=== PATIENT | female | born 1975 | race African-American/Black ===

== ENCOUNTER 2017-04-02 07:49 | Inpatient (IN) | payer OTHER ==
[~2017-04-02] VITALS: Ht 160 cm; Wt 83.5 kg
[2017-04-02] VITALS (12 sets, daily range): BP systolic 116–140; BP diastolic 71–98
[~2017-04-02 07:49] MED LIST: Bacitracin 50000 Units Vial ONE; Bupivacaine w/Epi 0.5% 30ml Vial INJ ONE; Dexamethasone 20mg/5ml IVP ONE; Heparin 5000 units/ml inj ONE; Lidocaine 1% 10mg/ml/Epi 0.005mg/ml 30ml vial INJ ONE; Surgicel 4in x 8in TOPIC ONE; Thrombin 5000 units TOPIC ONE; Vancomycin 1gm inj IVPB ONE; ceFAZolin 1gm in D5W 55ml IVPB ONE; ceFAZolin 1gm/50ml Premix 50 ML IV ONE
[2017-04-02] MEDS ORDERED: CYCLOBENZAPRINE10 MG ORAL (08:55)
[2017-04-02] MEDS ORDERED: MORPHINE IR15 MG ORAL (08:55)
[2017-04-02] MEDS ORDERED: OXYCODONE IR15 MG ORAL (08:55)
[2017-04-02] MEDS ORDERED: HYDROmorphone 1mg/ml Carpuject SUBQ PRN (09:00)
[2017-04-02] MEDS ORDERED: Chloraseptic Spray 20mL Bottle ORAL PRN (09:00)
[2017-04-02] MEDS ORDERED: Dronabinol 2.5mg Cap ORAL SCH (09:00)
[2017-04-02] MEDS ORDERED: LR 1000ml 1,000 ML IVLG SCH (12:34)
--- NOTE | 2017-04-02 12:39 | Anethesia Preoperative Eval ---
Anesthesia Pre-op PMH/ROS General Date of Evaluation: Apr 02, 2017 Time of Evaluation: 13:36 Anesthesiologist: Dharmesh ASA Score: ASA 2 Mallampati Score Class I : Soft palate, uvula, fauces, pillars visible Class II: Soft palate, uvula, fauces visible Class III: Soft palate, base of uvula visible Class IV: Only hard plate visible Mallampati Classification: Class II Surgeon: Delilah Diagnosis: Neck Pain Surgical Procedure: ACDF C5-6, C6-7 Anesthesia History: none Family History: no anesthesia problems Allergies: Uncoded Allergies: SYNTHETIC HORMONES (Adverse Reaction, Unknown, wbc goes down , 04/02/17) Medications: see eMAR Past Medical History Cardiovascular: Reports: HTN Hematology/Immune: Reports: anemia Other: obesity - BMI 33 PSxH Narrative: Myomectomy, Cholecystectomy Anesthesia Pre-op Phys. Exam Physician Exam Last Vital Signs Date Time Temp Pulse Resp B/P (MAP) Pulse Ox O2 Delivery O2 Flow Rate FiO2 04/02/17 08:47 97.2 85 18 131/81 100 Room Air Constitutional: NAD Neurologic: CN 2-12 intact Cardiovascular: RRR Respiratory: CTA Gastrointestinal: S/NT/ND Airway Exam Mallampati Score: Class II MO: limited ROM: limited Teeth: intact Anesthesia Pre-op A/P Labs Urine Test Test 04/02/17 08:15 Urine HCG, Qualitative Negative Risk Assessment & Plan Assessment: ASA 2 Plan: GA, BIS, Glidescope Status Change Before Surgery: No Pre-Antibiotics Dru Grams Ancef IV Given Within 1 Hr of Incision: Yes Time Given: 14:56 Todd Barroso MD Apr 02, 2017 12:39
[2017-04-02] MEDS ORDERED: Hydromorphone 0.5mg/0.5ml inj IVP PRN (12:45)
[2017-04-02] MEDS ORDERED: oxyCODONE HCL/Acetaminophen 5/325mg ORAL PRN (12:45)
[2017-04-02] MEDS ORDERED: Atropine Inj 1mg/10ml Syr IV PRN (12:45)
[2017-04-02] MEDS ORDERED: DiphenhydrAMINE 50mg/ml Inj IVP PRN (12:45)
[2017-04-02] MEDS ORDERED: Ketorolac 30mg Inj IV PRN (12:45)
[2017-04-02] MEDS ORDERED: LORazepam Inj 2mg/ml 1ml IV PRN (12:45)
[2017-04-02] MEDS ORDERED: Ketorolac 60mg Inj IV PRN (12:45)
[2017-04-02] MEDS ORDERED: Norco 5mg/325mg tab ORAL PRN (12:45)
[2017-04-02] MEDS ORDERED: Meperidine 50mg/ml Inj(FOR RIGORS ONLY) IVP PRN (12:45)
[2017-04-02] MEDS ORDERED: Metoclopramide 10mg/2ml Inj IVP PRN (12:45)
[2017-04-02] MEDS ORDERED: Midazolam 2mg/2ml Inj IVP PRN (12:45)
[2017-04-02] MEDS ORDERED: fentaNYL 100 mcg/2 mL IV PRN (12:45)
[2017-04-02] MEDS ORDERED: Norco 7.5mg/325mg tab ORAL PRN (12:45)
[2017-04-02] MEDS ORDERED: Acetaminophen (Non formulary) 100 ML IV ONE (13:00)
[2017-04-02] MEDS ORDERED: Sterile Water Irrig 1000ml IRRIG ONE (13:30)
[2017-04-02] MEDS ORDERED: LR 1000ml ONE (13:30)
[2017-04-02] MEDS ORDERED: NS Irrig 1000ml ONE (13:30)
[2017-04-02] MEDS ORDERED: fentaNYL 100 mcg/2 mL IV ONE (13:30)
[2017-04-02] MEDS ORDERED: Lidocaine 1% MPF 10mg/ml 5ml ONE (13:30)
[2017-04-02] MEDS ORDERED: Zemuron 50mg/5ml Inj IV ONE (13:30)
[2017-04-02] MEDS ORDERED: Neostigmine 1mg/ml 10ml Inj ONE (13:30)
[2017-04-02] MEDS ORDERED: Glycopyrrolate 0.2mg/ml 1ml Vial ONE (13:30)
[2017-04-02] MEDS ORDERED: Labetalol 5mg/ml 20ml vial IV ONE (13:30)
[2017-04-02] MEDS ORDERED: Propofol 1,000mg/ 100ml btl IV ONE (13:30)
[2017-04-02] MEDS ORDERED: Lidocaine 1% Plain 30 ml INJ ONE ×2 (13:30→13:46)
[2017-04-02] MEDS ORDERED: Thrombin 5000 units TOPIC ONE ×2 (13:46→14:08)
[2017-04-02] MEDS ORDERED: Vancomycin 1gm inj IVPB ONE (13:46)
[2017-04-02] MEDS ORDERED: Bupivacaine 0.5% Inj 30 ml vial INJ ONE (13:47)
[2017-04-02] MEDS ORDERED: Bupivacaine w/Epi 0.5% 30ml Vial INJ ONE (13:47)
[2017-04-02] MEDS ORDERED: Bacitracin 50000 Units Vial ONE (13:47)
--- NOTE | 2017-04-02 13:50 | Pre-Procedure Note/Attestation ---
Pre-Procedure Note/Attestation Complete Prior to Procedure Planned Procedure: not applicable Procedure Narrative: ADR possible fusion C5-6, C6-7 Indications for Procedure Pre-Operative Diagnosis: Posst trauma discogenic neck pain Attestation I attest that I discussed the nature of the procedure; its benefits; risks and complications; and alternatives (and the risks and benefits of such alternatives ), prior to the procedure, with the patient (or the patient's legal career representative). I attest that, if there was a reasonable possibility of needing a blood transfusion, the patient (or the patient's legal career representative) was given the [facility] standardized written summary, pursuant to the [place] Blood Safety Act ([place] Health and Safety Code # 1645, as amended). I attest that I re-evaluated the patient just prior to the surgery and that there has been no change in the patient's H&P, except as documented below: WARD HILLS Apr 02, 2017 13:50
[2017-04-02] MEDS ORDERED: Surgicel 4in x 8in TOPIC ONE (14:03)
[2017-04-02] MEDS ORDERED: Lidocaine 1% 10mg/ml/Epi 0.005mg/ml 30ml vial INJ ONE (14:03)
--- NOTE | 2017-04-02 14:18 | Immediate Post-Op Evaluation ---
Immediate Post-Op Evalulation Immediate Post-Op Evalulation Procedure: ACDF C5-6, C6-7 Date of Evaluation: Apr 02, 2017 Time of Evaluation: 16:45 IV Fluids: 1500 LR Blood Products: 0 Estimated Blood Loss: 30 Urinary Output: 0 Blood Pressure Systolic: 142 Blood Pressure Diastolic: 98 Pulse Rate: 79 Respiratory Rate: 16 O2 Sat by Pulse Oximetry: 97 Temperature (Fahrenheit): 97.6 Pain Score (1-10): 3 Nausea: No Vomiting: No Complications 0 Patient Status: awake, reacts, patent, extubated, none Hydration Status: adequate Dru Grams Ancef IV Given Within 1 Hr of Incision: Yes Time Given: 13:56 Todd Barroso MD Apr 02, 2017 14:18
--- NOTE | 2017-04-02 16:27 | Brief Operative Note ---
Immediate Post Operative Note Operative Note Pre-op Diagnosis: Posst trauma discogenic neck pain Procedure: ADR C5-6 C6-7 xray ssep high power Post-op Diagnosis: same as pre-op Findings: consistent w/pre-op dx studies Surgeon: Delilah Rn Supplemental: Virgie PURVIS Anesthesiologist: Dharmesh Anesthesia: general Specimen: none Complications: none Condition: stable Fluids: anesthesia Estimated Blood Loss: minimal Drains: none Implant(s) used?: Yes WARD HILLS Apr 02, 2017 16:27
[2017-04-02] MEDS ORDERED: PCA HYDROmorphone 1mg/ml 30 ML IV PRN (17:00)
[2017-04-02] MEDS ORDERED: Rate Change PCA 1 Each MISC PRN (17:45)
[2017-04-02] MEDS ORDERED: PCA shift volume MISC SCH (19:00)
[2017-04-02] MEDS: D5 1/2NS 1,000 ML IV SCH (19:15)
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
[2017-04-02] MEDS: ceFAZolin sod 1 GM in D5W 55 ML IV SCH (22:03)
[2017-04-02] MEDS: Dronabinol 2.5mg Cap ORAL SCH (22:04)
[2017-04-02] MEDS: oxyCODONE 5mg IR tab ORAL PRN (22:39)
[2017-04-03] VITALS: BP 136/85
--- NOTE | 2017-04-03 00:45 | Operative Note - Dictated ---
DATE OF OPERATION: 04/02/2017 SURGEON: Jose Mazariegos, Ph.D. M.Jaz. NEUROLOGY NURSE: YANIV Mitchell. ANESTHESIOLOGIST: Todd Barroso M.D. ANESTHESIA: General with intubation. ADMITTING/PREOPERATIVE DIAGNOSIS: POSTOPERATIVE DIAGNOSIS: ESTIMATED BLOOD LOSS: Minimal. POSTOPERATIVE CONDITION: Good/stable. Operative procedure: C5-C6 and C6-C7 artificial disc replacement, cervical. [employer]tronics. High-power magnification dissection. SSEP monitoring. Intraoperative fluoroscopic imaging interpreted by surgeon. SPECIMEN: None. Description of Procedure: The patient was brought to the operating room and in the supine position, general anesthesia with intubation was induced. IV antibiotics, IV Decadron were administered prior to incision time. Cross-table fluoroscopic imaging was obtained with a spinal needle tape on the contralateral aspect of the neck without penetration to the skin. Imaging was utilized to determine the correct level for incision and placement. Skin on the left side (the needle was on the right side) of the neck was marked with a sterile pen. The needle was removed with tape. Anterior cervical spine was sterilely prepped and draped free in usual sterile fashion. Transverse incision with appropriate interval left 4 cm maximum in length were sharply placed in the dermis and epidermis. Electrocautery dissection was carried through the subcutaneous tissue to the level of the platysmas muscle that was identified, isolated, and transected in line with the incision. Blunt dissection was sequentially carried through the deep cervical and pretracheal fascia medial to the carotid sheath into the midline between the right and left longus colli muscles. Spine needle that was bent so as to avoid penetration greater than 3 mm into the disc space was placed under direct high-power magnification into the disc and a cross-table fluoroscopic image under sterile conditions was obtained demonstrating the correct level as C6-C7. Level was marked, needle removed. Subperiosteal dissection of longus colli muscles not exceeding 3 mm in the mediolateral extent. Retractors placed. C5-C6: Annulotomy was performed. Diskectomy to the posterior longitudinal ligament. Posterior longitudinal ligament resected. No dural tears or leaks. SSEP monitoring stable, trial utilization demonstrating the correct prosthesis utilized. The endplates were prepared with removal of cartilage prior to the trial. Drilling followed with real cuts followed with insertion of the prosthesis was undertaken. Fit excellent. Imaging excellent for position and alignment. Correct level. Attention was turned with placement of retractors at C6-C7. Annulotomy followed diskectomy followed with resection of the posterior longitudinal ligament. SSEP monitoring stable. No dural tears or leaks noted anytime during the procedure. Insertion site preparation with a device as noted with C5-C6. Fit excellent. Cross-table imaging demonstrated excellent alignment and positioning. Wound irrigated with antibiotic-containing saline. Exploration under high-power magnification revealed no obvious excoriation or laceration of vital structures. Sequential reapproximation of the platysmas muscle and subcuticular closure followed with transverse surgical strips and sterile bandage maintained in place with tape. The patient was carefully awakened on the operating table and transported to postoperative recovery in good stable condition. Jose Mazariegos M.D. DR: SYDNI JOB#: [id number] CC:
[2017-04-03] MEDS: D5 1/2NS 1,000 ML IV SCH (03:15)
[2017-04-03] MEDS: oxyCODONE 5mg IR tab ORAL PRN ×2 (03:40→07:50)
[2017-04-03 04:00] VITALS: BP 142/85
[2017-04-03] MEDS: Dronabinol 2.5mg Cap ORAL SCH (05:49)
[2017-04-03] MEDS: ceFAZolin sod 1 GM in D5W 55 ML IV SCH (05:53)
[2017-04-03 08:00] VITALS: BP 129/90
[2017-04-03 10:31] VITALS: BP 118/72
--- NOTE | 2017-04-03 10:31 | 48 Hour Post Anesthesia Eval ---
Post Anesthesia Evaluation Procedure: ACDF C5-6, C6-7 Date of Evaluation: Apr 03, 2017 Time of Evaluation: 10:30 Blood Pressure Systolic: 118 0: 72 Pulse Rate: 68 Respiratory Rate: 18 Temperature (Fahrenheit): 97.6 O2 Sat by Pulse Oximetry: 98 Airway: patent Nausea: No Vomiting: No Pain Intensity: 2 Hydration Status: adequate Cardiopulmonary Status: stable Mental Status/LOC: patient returned to baseline Follow-up Care/Observations: n/a Post-Anesthesia Complications: none Follow-up care needed: ready to discharge ROSA BAER M.D. Apr 03, 2017 10:31
--- NOTE | 2017-04-03 11:23 | Diagnostic Imaging Report ---
Indication: Cervical pain Technique: Intraoperative imaging of the cervical spine with 3 fluoroscopic captured images. Fluoroscopy time of 13 seconds with dose of 1.56 mGy. Comparison: None Findings: Limited intraoperative imaging of the cervical spine demonstrates an endotracheal tube. Initial image demonstrates a localization needle at the C6/C7 level. Intervertebral arthroplasty is noted at the C5/C6 and C6/C7 levels although evaluation is limited by soft tissue and osseous overlap. Impression: Intraoperative imaging of the cervical spine.
--- NOTE | 2017-04-03 15:45 | Progress Note ---
DATE: 04/03/2017 ACUTE PAIN MANAGEMENT PHYSICIAN PROGRESS NOTE Medications: Medication administration record reviewed. Medications include Dilaudid DETENTION OFFICER, subcutaneous Dilaudid, Phenergan, Chloraseptic, Protonix, Roxicodone, Zofran, Marinol, Benadryl, Catapres, Soma, and Mylanta. LABORATORY STUDIES: No interval laboratory studies. OBJECTIVE: Vital Signs: Pain level 6/10 on the visual analog pain scale, afebrile, pulse 78, respirations 18, blood pressure 136/85, and oxygen saturation on room air. I spent over 60 minutes in consultation today. I saw the patient at bedside with her mother and the nurse RN, Daniel. The patient is sitting comfortably in bed. She was swallowing, breathing, and phonating within normal limits after her neck surgery. She denies any shortness of breath or chest pain. She had some mild nausea last night after anesthesia, but able to tolerate advancing liquid diet this morning without any difficulties. She is hungry and is requesting to advance her diet to regular in fact. The patient has had no over sedation using the scheduled Marinol, which I will come continue every 8 hours for baseline analgesia. She has been tolerating the oral oxycodone along with Soma and even the Cepacol lozenges. At this time, I will discontinue her DETENTION OFFICER, Hep-Lock her intravenous, and discontinue her nasal cannula oxygen nasal cannula oxygen in order to help encourage her movement in and out of bed. Neck dressing appears clean and dry. The patient has a good supply of oxycodone and marijuana already at home to help with pain control at home. The patient will be living with her parents. We will assist with activities of daily living. I will expect discharge to home later today and the patient will followup with Dr. Mazariegos as an outpatient surgical clinic for surgical followup. Justin Alvarez M.D. DR: BRAYDON JOB#: [id number] CC:
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
== END 2017-04-03 11:52 | disposition home or self-care (01) | DRG 30 ==
LOC: SDSOVERFLO 07:49 → 3E 18:37
PROC: 0RR30JZ Replacement of Cervical Vertebral Disc with Synthetic Substitute, Open Approach (ICD-10-PCS; principal; 2017-04-02 11:45)
DX: M54.12 Radiculopathy, cervical region (principal); E66.9 Obesity, unspecified; F11.90 Opioid use, unspecified, uncomplicated; V89.2XXS Person injured in unspecified motor-vehicle accident, traffic, sequela; G89.4 Chronic pain syndrome
CPT/HCPCS: 36415; 72040; 76001; 81025; 86850; 86900; 86901; 87081; 94003; 94150; J2405; J2710

== ENCOUNTER 2017-05-13 05:43 | Inpatient (IN) | payer OTHER ==
[~2017-05-13] VITALS: Ht 160 cm; Wt 83.5 kg
[2017-05-13] VITALS (14 sets, daily range): BP systolic 112–160; BP diastolic 61–110
[~2017-05-13 05:43] MED LIST changes: -Bacitracin 50000 Units Vial ONE; -Bupivacaine w/Epi 0.5% 30ml Vial INJ ONE; +CYCLOBENZAPRINE10 MG ORAL; -Dexamethasone 20mg/5ml IVP ONE; -Heparin 5000 units/ml inj ONE; -Lidocaine 1% 10mg/ml/Epi 0.005mg/ml 30ml vial INJ ONE; +MORPHINE IR15 MG ORAL; +OXYCODONE IR15 MG ORAL; -Surgicel 4in x 8in TOPIC ONE; -Thrombin 5000 units TOPIC ONE; -Vancomycin 1gm inj IVPB ONE; -ceFAZolin 1gm in D5W 55ml IVPB ONE; -ceFAZolin 1gm/50ml Premix 50 ML IV ONE
[2017-05-13] MEDS ORDERED: LR 1000ml 1,000 ML IVLG SCH (06:09)
[2017-05-13] MEDS ORDERED: SOMA350 MG PO (06:13)
[2017-05-13] MEDS ORDERED: LORazepam Inj 2mg/ml 1ml IV PRN (06:15)
[2017-05-13] MEDS ORDERED: Acetaminophen (Non formulary) 100 ML IV ONE (06:15)
[2017-05-13] MEDS ORDERED: Midazolam 2mg/2ml Inj IVP PRN (06:15)
[2017-05-13] MEDS ORDERED: DiphenhydrAMINE 50mg/ml Inj IVP PRN (06:15)
[2017-05-13] MEDS ORDERED: Ketorolac 30mg Inj IV PRN (06:15)
[2017-05-13] MEDS ORDERED: Atropine Inj 1mg/10ml Syr IV PRN (06:15)
[2017-05-13] MEDS ORDERED: oxyCODONE HCL/Acetaminophen 5/325mg ORAL PRN (06:15)
[2017-05-13] MEDS ORDERED: fentaNYL 100 mcg/2 mL IV PRN (06:15)
[2017-05-13] MEDS ORDERED: Ketorolac 60mg Inj IV PRN (06:15)
[2017-05-13] MEDS ORDERED: Metoclopramide 10mg/2ml Inj IVP PRN (06:15)
[2017-05-13] MEDS ORDERED: Hydromorphone 0.5mg/0.5ml inj IVP PRN (06:15)
[2017-05-13] MEDS ORDERED: Norco 7.5mg/325mg tab ORAL PRN (06:15)
[2017-05-13] MEDS ORDERED: Norco 5mg/325mg tab ORAL PRN (06:15)
[2017-05-13] MEDS ORDERED: Dexamethasone 20mg/5ml ONE (06:37)
[2017-05-13] MEDS ORDERED: Surgicel 4in x 8in TOPIC ONE (06:40)
[2017-05-13] MEDS ORDERED: Heparin 5000 units/ml inj ONE (06:40)
[2017-05-13] MEDS ORDERED: Thrombin 5000 units TOPIC ONE (06:40)
[2017-05-13] MEDS ORDERED: Lidocaine 1% Plain 30 ml INJ ONE (06:40)
[2017-05-13] MEDS ORDERED: Ropivacaine 5mg/ml Vial 30ml INJ ONE (06:41)
[2017-05-13] MEDS ORDERED: NeoSporin Gu Irrig 1ml Amp IRRIG ONE (06:41)
[2017-05-13] MEDS ORDERED: Bacitracin 50000 Units Vial ONE (06:41)
[2017-05-13] MEDS ORDERED: Vancomycin 1gm inj IVPB ONE (06:41)
[2017-05-13] MEDS ORDERED: Dexamethasone 20mg/5ml IVP ONE (07:00)
[2017-05-13] MEDS ORDERED: Sodium Chloride 10ml vial INJ ONE (07:00)
[2017-05-13] MEDS ORDERED: ceFAZolin sod 1 GM in NS 55 ML IVPB ONE (07:00)
[2017-05-13] MEDS ORDERED: Zemuron 50mg/5ml Inj IV ONE (07:00)
[2017-05-13] MEDS ORDERED: NS Irrig 1000ml ONE (07:00)
[2017-05-13] MEDS ORDERED: Propofol 1,000mg/ 100ml btl IV ONE (07:00)
[2017-05-13] MEDS ORDERED: Glycopyrrolate 0.2mg/ml 1ml Vial ONE (07:00)
[2017-05-13] MEDS ORDERED: Lidocaine 1% MPF 10mg/ml 5ml ONE (07:00)
[2017-05-13] MEDS ORDERED: LR 1000ml ONE (07:00)
[2017-05-13] MEDS ORDERED: Labetalol 5mg/ml 20ml vial IV ONE (07:00)
[2017-05-13] MEDS ORDERED: Neostigmine 1mg/ml 10ml Inj ONE (07:00)
[2017-05-13] MEDS ORDERED: Sterile Water Irrig 1000ml IRRIG ONE (07:00)
--- NOTE | 2017-05-13 07:07 | Anethesia Preoperative Eval ---
Anesthesia Pre-op PMH/ROS General Date of Evaluation: May 13, 2017 Time of Evaluation: 07:06 Anesthesiologist: Dharmesh ASA Score: ASA 2 Mallampati Score Class I : Soft palate, uvula, fauces, pillars visible Class II: Soft palate, uvula, fauces visible Class III: Soft palate, base of uvula visible Class IV: Only hard plate visible Mallampati Classification: Class II Surgeon: Delilah Diagnosis: Back Pain Surgical Procedure: ALIF L5-S1, PSF L5-S1 Anesthesia History: none Family History: no anesthesia problems Allergies: Uncoded Allergies: SYNTHETIC HORMONES (Adverse Reaction, Unknown, wbc goes down , 04/02/17) Medications: see eMAR Past Medical History Cardiovascular: Reports: HTN Pulmonary: Reports: asthma Other: obesity - BMI 33 PSxH Narrative: Cholecystectomy, Myomectomy, ACDF C5-6, C6-7 Anesthesia Pre-op Phys. Exam Physician Exam Last Vital Signs Date Time Temp Pulse Resp B/P (MAP) Pulse Ox O2 Delivery O2 Flow Rate FiO2 05/13/17 06:44 98.4 71 18 129/87 100 Room Air Constitutional: NAD Neurologic: CN 2-12 intact Cardiovascular: RRR Respiratory: CTA Gastrointestinal: S/NT/ND Airway Exam Mallampati Score: Class II MO: full ROM: limited Teeth: intact Anesthesia Pre-op A/P Labs Urine Test Test 05/13/17 06:00 Urine HCG, Qualitative Negative Risk Assessment & Plan Assessment: ASA 2 Plan: GA, BIS, GlideScope Status Change Before Surgery: No Pre-Antibiotics Dru Grams Ancef IV Given Within 1 Hr of Incision: Yes Time Given: 07:26 Todd Barroso MD May 13, 2017 07:07
--- NOTE | 2017-05-13 07:11 | Immediate Post-Op Evaluation ---
Immediate Post-Op Evalulation Immediate Post-Op Evalulation Procedure: ALIF L5-S1, PSF L5-S1 Date of Evaluation: May 13, 2017 Time of Evaluation: 11:59 IV Fluids: 1500 LR Blood Products: 0 Estimated Blood Loss: 50 Urinary Output: 100 Blood Pressure Systolic: 122 Blood Pressure Diastolic: 60 Pulse Rate: 87 Respiratory Rate: 16 O2 Sat by Pulse Oximetry: 100 Temperature (Fahrenheit): 97.6 Pain Score (1-10): 3 Nausea: No Vomiting: No Complications 0 Patient Status: awake, reacts, patent, extubated, none Hydration Status: adequate Dru Grams Ancef IV Given Within 1 Hr of Incision: Yes Time Given: 07:26 Todd Barroso MD May 13, 2017 07:11
--- NOTE | 2017-05-13 07:13 | Pre-Procedure Note/Attestation ---
Pre-Procedure Note/Attestation Complete Prior to Procedure Planned Procedure: not applicable Procedure Narrative: L5-S1 Post trauma instability Indications for Procedure Pre-Operative Diagnosis: Anterior ALIF L5-S1 Posterior fusion, Pedicle Screws L5-S1 Attestation I attest that I discussed the nature of the procedure; its benefits; risks and complications; and alternatives (and the risks and benefits of such alternatives ), prior to the procedure, with the patient (or the patient's legal claim service representative). I attest that, if there was a reasonable possibility of needing a blood transfusion, the patient (or the patient's legal claim service representative) was given the [place] [facility] standardized written summary, pursuant to the [place] Blood Safety Act ([place] Health and Safety Code # 1645, as amended). I attest that I re-evaluated the patient just prior to the surgery and that there has been no change in the patient's H&P, except as documented below: WARD HILLS May 13, 2017 07:13
[2017-05-13] MEDS ORDERED: oxyCODONE 5mg IR tab ORAL PRN (09:00)
[2017-05-13] MEDS ORDERED: Tylenol #3 tab (300mg/30mg) ORAL PRN (09:00)
[2017-05-13] MEDS ORDERED: traMADol 50mg tab ORAL PRN (09:00)
--- NOTE | 2017-05-13 11:18 | Brief Operative Note ---
Immediate Post Operative Note Operative Note Pre-op Diagnosis: Anterior ALIF L5-S1 Posterior fusion, Pedicle Screws L5-S1 Procedure: Body Habitus ALIF internal fixation correction deformity BMP fusion, magnification SSEP, xray , L5-S1 Posterior Pedical Scrwe L5, S1. Facet fusion SSEP high power xray, local body habitus Post-op Diagnosis: same as pre-op Findings: consistent w/pre-op dx studies Surgeon: Kobe Seals Posterior [employer] Consultant: Posterior Virgie HOUSE WIRER Anesthesia: general Specimen: none Complications: none Condition: stable Fluids: anesthesia Estimated Blood Loss: minimal Drains: hemovac Implant(s) used?: Yes WARD HILLS May 13, 2017 11:18
[2017-05-13] MEDS ORDERED: Naloxone 0.4mg/ml Inj IVP PRN (11:45)
[2017-05-13] MEDS ORDERED: PCA HYDROmorphone 1mg/ml 30 ML IV PRN (12:00)
[2017-05-13] MEDS ORDERED: Rate Change PCA 1 Each MISC PRN (12:05)
[2017-05-13] MEDS: PCA HYDROmorphone 1mg/ml 30 ML IV PRN (12:09)
--- NOTE | 2017-05-13 13:29 | Diagnostic Imaging Report ---
Indication: PAIN, intraoperative Technique: Digital intraoperative images Comparison: None Findings: Localizer image demonstrates a needle projected over anterior aspect of what is presumably the 6 L5-S1 disc. Subsequent images demonstrate placement of an L5-S1 disc spacer and posterior fusion hardware at L5-S1. Impression: Intraoperative imaging, as described
[2017-05-13] MEDS: HYDROmorphone 1mg/ml Carpuject SUBQ PRN (13:34)
[2017-05-13] MEDS: D5 1/2NS 1,000 ML IV SCH ×2 (13:37→20:54)
[2017-05-13] MEDS ORDERED: PCA Education Pamphlet MISC ONE (14:00)
[2017-05-13] MEDS: Dronabinol 2.5mg Cap ORAL SCH ×2 (14:37→22:22)
--- NOTE | 2017-05-13 15:15 | Operative Note - Dictated ---
DATE OF OPERATION: 05/13/2017 VASCULAR SURGEON: Santos Bullock M.D. SPINE SURGEON: Jose Mazariegos M.D. PREOPERATIVE DIAGNOSIS: Degenerative disk disease. POSTOPERATIVE DIAGNOSIS: Degenerative disk disease. PROCEDURE PERFORMED: Anterior retroperitoneal exposure L5-S1 vertebral interspace. INDICATIONS: The patient is a very pleasant woman, who is seen in my office prior to surgery. She has no anterior abdominal surgery. No history of deep venous thrombosis or bleeding complications were noted. She has been made aware of the need for vascular mobilization of the iliac vessels for exposure of L5-S1, possibly vascular injury, possible need for blood transfusion, and deep venous thrombosis were explicitly discussed. DESCRIPTION OF FINDINGS: A transverse Pfannenstiel type incision was made just above the pubic symphysis. A left retroperitoneal approach was used. There was no peritoneal or ureteral violation. There was no vascular injury. Exposure of L5-S1 was obtained by retraction of left iliac vessels superiorly and laterally. On completion, the peritoneum and ureter were intact. The iliac vessels are intact. Blood loss was less than 50 mL and complications were none. DESCRIPTION OF PROCEDURE: The patient was taken to the operating room. General anesthesia was used. Intravenous antibiotics were given. The patient's abdomen was prepped and draped. Appropriate time-out for procedure taken. A transverse incision was made just above the pubic symphysis. Flaps were raised superiorly. The anterior fascia was incised longitudinally midline. A plane was identified posterior to the left rectus abdominis developed posterolaterally towards the patient left. The retroperitoneal space entered below the arcuate line. The peritoneum and ureter were mobilized towards the patient's right exposing the left common iliac artery and vein. Dissection was carried out on the undersurface of the left common iliac artery and vein. The middle sacral artery and vein were ligated using bipolar electrocautery and divided and this allowed us to mobilize the left iliac vessels superiorly and laterally exposing the anterior surface of L5 and S1. Fluoroscopy was used to confirm the appropriate level. Then instrumentation was performed at L5-S1 and dictated separately. On completion, the peritoneum and ureter were intact. Iliac vessels were intact. Anterior fascia was closed using #1 PDS in a running fashion. Skin and subcutaneous tissue were closed with 3-0 Vicryl and 4-0 Monocryl in a running subcuticular closure technique. Estimated blood loss was less than 100 mL. Complications none. Santos Bullock M.D. DR: GABE JOB#: [id number] CC:
[2017-05-13] MEDS: ceFAZolin sod 1 GM in D5W 55 ML IV SCH (15:38)
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
[2017-05-13] MEDS: Docusate 100mg cap ORAL SCH (17:12)
[2017-05-13] MEDS ORDERED: Milk of Magnesia 30ml Ud ORAL PRN (17:30)
--- NOTE | 2017-05-13 18:00 | Operative Note - Dictated ---
DATE OF OPERATION: 05/13/2017 PRIMARY SURGEON: Jose Hugo, Ph.D., M.D. VASCULAR SURGEON: Santos Bullock M.D., posterior. MACHINE OPERATIONS SUPERVISOR: YANIV Guzman. ANESTHESIOLOGIST: Todd Barroso M.D. ANESTHESIA: General with intubation. ESTIMATED BLOOD LOSS: 100 mL. COMPLICATIONS: None. POSTOP CONDITION: Good/stable. ADMITTING/PREOPERATIVE DIAGNOSIS: Posttraumatic lumbar spine instability. POSTOPERATIVE DIAGNOSIS: Posttraumatic lumbar spine instability. OPERATIVE PROCEDURE: Anterior: 1. L5-S1 correction deformity. 2. Interbody reconstruction. 3. Internal fixation. 4. Fusion. 5. Placement of bone morphogenic protein. 6. The patient's body habitus is greater than 95th percentile for height. 7. High-power magnification dissection. 8. Intraoperative x-rays interpreted by surgeons. Dr. Mazariegos, primary. Co-surgeon, Dr. Bullock, Vascular Surgery. Vascular surgery exposure, please see separate report of Dr. Delilah Ji assist. POSTERIOR: 9. The patient's body habitus is greater than 95th percentile for height. 10. Pedicle screw instrumentation at L5-S1 bilaterally. 11. High-powered microdissection. 12. SSEP monitoring. 13. Bilateral facet fusion autograft at L5-S1. 14. Local anesthetic applied by surgeon, 1% lidocaine without epinephrine. 15. Intraoperative x-rays interpreted by surgeon. DESCRIPTION OF PROCEDURE: The patient was brought to the operating room and in the supine position, general anesthesia with intubation was induced. Intravenous antibiotics and IV Decadron were administered 30 minutes prior to incision time. Anterior abdomen was sterilely prepped and draped free in usual sterile fashion. Exposure, please see separate dictation by Dr. Bullock, Dr. Mazariegos assist. L5-S1 was identified in AP and lateral planes under sterile condition with fluoroscopic guidance and needle in place. Position was marked. Needle removed. Annulotomy performed. Diskectomy performed too, but not through the posterior longitudinal ligament. Endplates denuded of cartilaginous end-caps to subchondral bone without violation of subchondral bone. Trials utilized. Appropriate interbody reconstructive device Aero-L lordotic 8 degrees with bone morphogenic protein placed under direct observation with fluoroscopic guidance. Internal fixation undertaken. Fibrin glue encapsulation of the graft. Wound irrigated with antibiotic-containing saline. Please see closure in Dr. Bullock's note. After the anterior abdomen was sterilely closed and bandaged, the patient was carefully turned from the supine to the prone position onto a new operating table and was brought into the operating theater. Prior operating table and all prior instruments removed. All new instruments utilized. In the prone position, lumbodorsal spine was sterilely prepped. A spinal needle was placed in the midline. A cross-table image obtained under sterile conditions, interpreted by surgeon for decision of incision placement. Upperglade removed. Back re-sterilely prepped and draped free in usual sterile fashion. A longitudinal midline incision was sharply placed through the dermis and epidermis. Electrocautery dissection was carried through extensive subcutaneous tissue to the level of lumbodorsal fascia. It was incised right and left of midline over the appropriate intervals. Exposure of the appropriate insertion points for the S1 pedicle screws and L5 pedicle screws undertaken. Facet fusions bilaterally of L5-S1 facet complexes after determination of level and position with markers in place and radiographs obtained under sterile conditions, interpreted by surgeon. Sequential placement of pedicle screws bilateral S1 and bilateral L5 with posterior cortical breach with drill. Pedicle feeler utilized at the appropriate angle with fluoroscopic guidance and anatomical position utilization. Determination of length of the appropriate screw. Tapping of the interval followed with physical ball-tip probe palpation of all cortical cedeno of the pedicle not demonstrating either EMG activity on SSEP or physical palpable breach. Screw insertion of the appropriate dimension screws bilaterally at L5 and bilaterally at S1. Electrical screw stimulation 5 milliamps negative and recorded. Interconnecting rods positioned after irrigation. Rods clamped into position and torqued into position appropriately with maintaining lordosis. Wound re-irrigated with antibiotic-containing saline. 2 g IV vancomycin powder placed deep to the lumbodorsal fascia. Sequential reapproximation with Vicryl suture material of the lumbodorsal fascia, multiple layers of subcutaneous tissue, dermis, and epidermis followed with surgical strips. Local anesthetic 1% lidocaine with epinephrine applied bilaterally at the dermal/subcutaneous interval. Sterile bandage applied and maintained in place with tape. The patient was carefully turned from the prone to supine position onto the transport bed where she was awakened and extubated in the operating room and transported to postop recovery in good stable condition. Jose Mazariegos, M.D. DR: MILDRED JOB#: [id number] CC:
--- NOTE | 2017-05-13 18:44 | Cardiology Progress Note ---
Assessment/Plan Assessment/Plan [id number] Objective Last 24 Hour Vital Signs Date Time Temp Pulse Resp B/P (MAP) Pulse Ox O2 Delivery O2 Flow Rate FiO2 05/13/17 16:00 97.4 94 19 115/61 95 Nasal Cannula 2.0 05/13/17 16:00 18 05/13/17 14:04 98.0 05/13/17 13:51 18 05/13/17 13:35 97.4 104 20 160/110 97 Room Air 05/13/17 13:21 18 05/13/17 13:10 98.7 95 20 147/92 98 Nasal Cannula 2.0 05/13/17 13:05 16 05/13/17 13:00 98.0 78 16 148/84 100 Nasal Cannula 3.0 05/13/17 12:55 16 05/13/17 12:50 78 13 134/81 100 Nasal Cannula 3.0 05/13/17 12:41 98.0 05/13/17 12:41 98.0 05/13/17 12:40 15 05/13/17 12:39 75 15 125/79 100 Nasal Cannula 3.0 05/13/17 12:30 78 18 141/77 100 Nasal Cannula 3.0 05/13/17 12:25 19 05/13/17 12:20 84 21 141/77 100 Nasal Cannula 3.0 05/13/17 12:10 75 20 133/70 100 Simple Mask 6.0 05/13/17 12:09 20 05/13/17 12:00 78 21 148/75 100 Simple Mask 6.0 05/13/17 11:55 84 22 146/95 100 Simple Mask 6.0 05/13/17 11:49 87 16 100 05/13/17 11:48 97.6 92 19 118/76 100 Simple Mask 6.0 05/13/17 06:44 98.4 71 18 129/87 100 Room Air Intake and Output 05/13/17 05/14/17 19:00 07:00 Intake Total 2315.0 ml Output Total 1050 ml Balance 1265.0 ml Intake IV Total 2315.0 ml Output Urine Total 1000 ml Estimated Blood Loss 50 ml Laboratory Tests Test 05/13/17 06:00 Urine HCG, Qualitative Negative PIERRE VERA May 13, 2017 18:44
[2017-05-13] MEDS: PCA shift volume MISC SCH (19:26)
--- NOTE | 2017-05-13 20:30 | Consultation ---
DATE OF CONSULTATION: 05/13/2017 CARDIOLOGY CONSULTATION CONSULTING PHYSICIAN: Anson Ugalde M.D. REFERRING PHYSICIAN: Jose Mazariegos M.D. REASON FOR REFERRAL: Postoperative medical care. HISTORY OF PRESENT ILLNESS: This is a 41-year-old female, who underwent a lumbar spine surgery with anterior approach. The patient is now being seen postoperatively. She is uncomfortable because of pain. No chest pain. No shortness of breath. No sore throat. She was nauseated earlier today. PAST MEDICAL HISTORY: Unremarkable. PAST SURGICAL HISTORY: Uterine fibroid myomectomy in 2014 and cholecystectomy. She had spine surgery and cervical spine here last year. FAMILY HISTORY: Mother with diabetes. Father with high blood pressure. Brother with high blood pressure and diabetes. SOCIAL HISTORY: She never smoked. Rare alcohol. Last marijuana use was 03/17/2017. 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 REVIEW OF SYSTEMS: GASTROINTESTINAL: Nausea but no vomiting. No bowel movement yet. GENITOURINARY: She has a Patton catheter. PULMONARY: No coughing or wheezing. CONSTITUTIONAL: Negative. PHYSICAL EXAMINATION: GENERAL: Shows to be obese young female, in no apparent respiratory distress. NECK: Supple. No jugular venous distention. No abdominojugular reflux noted. LUNGS: Clear to auscultation and percussion anteriorly into the side. CARDIAC: Showed regular rate and rhythm. ABDOMEN: Soft. There is a surgical scar vertical in the suprapubic area. EXTREMITIES: Pneumatic compression stockings in place. No edema, clubbing, or cyanosis. NEUROLOGICAL: She is awake, alert, responsive. She moves all four extremities. LABORATORY VALUES: None postop. ASSESSMENT AND PLAN: Posttraumatic lumbar spine instability now status post L5-S1 with correction deformity by Dr. Mazariegos. Dr. Mazariegos, the patient was seen in medical consultation. She is doing relatively well. Her vital signs appeared to be stable though she had initially some elevated blood pressure readings, subsequent readings seems to be high, we will follow the patient. DVT prophylaxis with use of pneumatic compression stockings. She is NPO until she has a bowel movement and to resume diet at that time. She is getting some ice chips at this time. Antiemetic medication as needed. The patient has been seen by for pain management and adjustment of medications currently. Anson Ugalde M.D. DR: MORGAN JOB#: [id number] CC:
[2017-05-14] MEDS: ceFAZolin sod 1 GM in D5W 55 ML IV SCH ×2 (00:08→08:40)
[2017-05-14 00:47] VITALS: BP 123/73
[2017-05-14 04:58] VITALS: BP 126/81
[2017-05-14] MEDS: D5 1/2NS 1,000 ML IV SCH ×3 (05:22→21:08)
[2017-05-14] MEDS: Dronabinol 2.5mg Cap ORAL SCH ×3 (05:22→21:10)
[2017-05-14] MEDS: PCA shift volume MISC SCH ×2 (07:19→19:16)
[2017-05-14 08:00] VITALS: BP 129/90
[2017-05-14] MEDS: Docusate 100mg cap ORAL SCH ×2 (08:39→17:54)
[2017-05-14] MEDS: HYDROmorphone 1mg/ml Carpuject SUBQ PRN ×3 (11:48→20:32)
[2017-05-14 12:00] VITALS: BP 126/83
[2017-05-14] MEDS: PCA HYDROmorphone 1mg/ml 30 ML IV PRN (12:16)
--- NOTE | 2017-05-14 12:32 | 48 Hour Post Anesthesia Eval ---
Post Anesthesia Evaluation Procedure: ALIF L5-S1, PSF L5-S1 Date of Evaluation: May 14, 2017 Time of Evaluation: 12:31 Blood Pressure Systolic: 126 0: 72 Pulse Rate: 74 Respiratory Rate: 20 Temperature (Fahrenheit): 97.6 O2 Sat by Pulse Oximetry: 98 Airway: patent Nausea: No Vomiting: No Pain Intensity: 3 Hydration Status: adequate Cardiopulmonary Status: stable Mental Status/LOC: patient returned to baseline Follow-up Care/Observations: n/a Post-Anesthesia Complications: none Follow-up care needed: N/A ROSA BAER M.D. May 14, 2017 12:32
[2017-05-14 16:00] VITALS: BP 135/80
[2017-05-14] MEDS: oxyCODONE 5mg IR tab ORAL PRN (17:04)
--- NOTE | 2017-05-14 18:13 | Cardiology Progress Note ---
Assessment/Plan Assessment/Plan in ability to void Posttraumatic lumbar spine instability now status post L5-S1 with correction deformity straight cath once willstart on flow max one tiem for tonite and tomorrow Subjective Cardiovascular: Denies: chest pain, irregular heart rate, lightheadedness, palpitations Respiratory: Denies: shortness of breath Genitourinary: Reports: other - difficulty urinating has nto been able to urinate Objective Last 24 Hour Vital Signs Date Time Temp Pulse Resp B/P (MAP) Pulse Ox O2 Delivery O2 Flow Rate FiO2 05/14/17 16:17 97.6 05/14/17 16:00 18 05/14/17 12:46 97.6 05/14/17 12:32 74 20 98 05/14/17 12:16 19 05/14/17 12:00 98.0 97 18 126/83 98 Room Air 05/14/17 12:00 19 05/14/17 11:35 98.2 05/14/17 08:00 18 05/14/17 08:00 98.2 99 20 129/90 100 Room Air 05/14/17 04:58 97.6 82 20 126/81 98 Nasal Cannula 3.0 05/14/17 04:00 18 05/14/17 00:47 98.2 76 19 123/73 98 Nasal Cannula 2.0 05/14/17 00:00 18 05/13/17 20:50 97.8 71 20 112/69 97 Nasal Cannula 2.0 05/13/17 20:00 18 General Appearance: alert, other - on the comode unablel touriante Intake and Output 05/14/17 05/15/17 19:00 07:00 Intake Total 1055 ml Output Total 1000 ml Balance 55 ml Intake IV Total 1055 ml Output Urine Total 1000 ml PIERRE VERA May 14, 2017 18:13
[2017-05-14] MEDS ORDERED: Tamsulosin 0.4mg cap ORAL ONE (18:15)
[2017-05-14 20:00] VITALS: BP 129/72
--- NOTE | 2017-05-14 20:16 | Progress Note ---
DATE: 05/14/2017 ACUTE PAIN MANAGEMENT PHYSICIAN PROGRESS NOTE MEDICATION: Medication administration record reviewed. Medications include IV fluids, Colace, Protonix, Dilaudid TRUCK DRIVER RUBBISH COLLECTOR, Marinol. P.r.n medications include Cepacol lozenges, Benadryl, Dilaudid, Mylanta, Narcan, Zofran, oxycodone, and Soma. LABORATORY STUDIES: No interval laboratory studies. OBJECTIVE: VITAL SIGNS: Pain level 8/10 on the visual analog pain scale. Afebrile, pulse 99, respirations 18, blood pressure 129/90, and oxygen saturation 100% on room air. I spent over 60 minutes in consultation today. I discussed the case with the nurse RN, Lisa, along with the physical therapist. I also spoke with the pharmacist, Page. The patient has been using a TRUCK DRIVER RUBBISH COLLECTOR Dilaudid unit without oversedation noticed. I spoke with the overnight nurse, RNVictor Hugo. The patient is able to move out of bed to the chair with physical therapy. She is complaining of neck stiffness as she did have neck surgery six weeks ago. She still has not had any positive flatus and diminished bowel sounds after anterior lumbar interbody fusion surgery. She will continue NPO except for medications and sips until there is better evidence of mu-ism of bowel function after this surgery. The patient has been receiving her scheduled [id number] Marinol. I did encouraged the nurse and the patient to request and dose the p.r.n. medications of Soma, oxycodone, and subcutaneous Dilaudid to help wean her off the TRUCK DRIVER RUBBISH COLLECTOR unit, hopefully over the next 36 hours. Incentive spirometer usage was encouraged. The patient will have sequential compression pneumatic devices in place for DVT prophylaxis. The patient has good social support at the bedside with friends and family. The patient already has Soma and oxycodone at home for home usage. Justin Alvarez M.D. DR: Gilma JOB#: [id number] CC:
[2017-05-14] MEDS ORDERED: D5 1/2NS 1000ml IV ONE (21:02)
[2017-05-14] MEDS ORDERED: Tubing IV Secondary IV ONE (21:02)
[2017-05-15] VITALS: BP 137/84
[2017-05-15] MEDS: oxyCODONE 5mg IR tab ORAL PRN ×2 (01:06→09:05)
[2017-05-15 04:00] VITALS: BP 134/85
[2017-05-15] MEDS: HYDROmorphone 1mg/ml Carpuject SUBQ PRN ×4 (04:36→23:48)
[2017-05-15] MEDS: Dronabinol 2.5mg Cap ORAL SCH ×3 (06:50→21:19)
[2017-05-15] MEDS: D5 1/2NS 1,000 ML IV SCH ×3 (06:51→18:27)
[2017-05-15] MEDS ORDERED: PCA HYDROmorphone 1mg/ml 30 ML IV PRN ×2 (07:00→09:05)
[2017-05-15] MEDS: PCA shift volume MISC SCH ×2 (07:00→19:00)
[2017-05-15 08:15] VITALS: BP 107/63
[2017-05-15] MEDS: Docusate 100mg cap ORAL SCH ×2 (09:04→17:10)
[2017-05-15] MEDS ORDERED: Rate Change PCA 1 Each MISC PRN (09:05)
[2017-05-15] MEDS ORDERED: D5 1/2NS 1000ml IV ONE (10:36)
[2017-05-15 11:55] VITALS: BP 116/76
--- NOTE | 2017-05-15 15:15 | Progress Note ---
DATE: 05/15/2017 ACUTE PAIN MANAGEMENT PHYSICIAN PROGRESS NOTE MEDICATIONS: Medication administration record reviewed. Medications include Dilaudid SPACE BUYER, Protonix, and Colace. P.r.n. medications include Benadryl, Cepacol, Marinol, Dilaudid, Mylanta, Zofran, Narcan, oxycodone, and Soma. LABORATORY STUDIES: No interval laboratory studies. OBJECTIVE: VITAL SIGNS: Pain level 8/10 on the visual analog pain scale. Pulse 108, T-max 99.4, current temperature 98.3, respirations 20, blood pressure 107/63, and oxygen saturation 100% on room air. I saw the patient at the bedside. I spent over 60 minutes in consultation today. I discussed the case with the overnight nurse RN, Amaris along with today's day nurse RN, Cinthya and the charge nurse RN, Kirstin. The patient's mother remains at the bedside providing good social support. The patient has been compliant using her incentive spirometer and has been coughing up phlegm well. She does smoke edible marijuana, so is an active smoker and needs to be aggressive using her incentive spirometer. After her anterior lumbar interbody fusion surgery, the patient still do not have any positive flatus. She does have bowel sounds and is burping. She is not yet passing flatus. She will remain NPO except for medications and ice chips until there is evidence for better return of bowel function with flatus. The patient remains on IV fluids for adequate intravascular rehydration. The patient has been getting improved pain relief with the [id number] of Marinol every 8 hours. I have encouraged aggressive dosing would be p.r.n. oral oxycodone mg along with the subcutaneous Dilaudid injections. She also has p.r.n. Soma. As soon as the patient is passing flatus and is able to tolerate oral liquids, I would recommend to discontinue the SPACE BUYER and Hep-Lock her IV and focus only on the p.r.n. medications in combination with the scheduled Marinol. The patient does see an outpatient pain doctor on a monthly basis who works in conjunction with Dr. Mazariegos, to provide her outpatient opioid narcotics. The patient has had a small supply of oxycodone already at home as well as some older extended release morphine pills from her previous outpatient doctor. I will defer any prescriptions for opioid narcotics to her outpatient pain doctor. Yesterday, the patient walked over 100 feet with the physical therapist. I have asked the nursing team to leave a front wheel walker at the bedside so the patient may increase her ambulation frequency both with physical therapist and with the medical staff and mother. Justin Alvarez M.D. DR: LATESHA JOB#: [id number] CC:
[2017-05-15 16:00] VITALS: BP 132/89
--- NOTE | 2017-05-15 18:37 | Cardiology Progress Note ---
Assessment/Plan Assessment/Plan d/w paitent and family, it is very improtant to amkbulate Subjective Subjective the patient still did not have Flatus and she is NPO Objective Last 24 Hour Vital Signs Date Time Temp Pulse Resp B/P (MAP) Pulse Ox O2 Delivery O2 Flow Rate FiO2 05/15/17 16:00 18 05/15/17 16:00 99.1 119 21 132/89 99 Room Air 05/15/17 13:00 18 05/15/17 12:00 18 05/15/17 11:55 98.9 111 20 116/76 98 Room Air 05/15/17 11:45 98.9 05/15/17 11:45 98.9 05/15/17 11:45 98.9 05/15/17 08:15 98.3 110 20 107/63 100 Room Air 05/15/17 08:00 18 05/15/17 04:10 18 05/15/17 04:00 99.2 116 18 134/85 100 Room Air 05/15/17 00:38 18 05/15/17 00:00 99.4 108 18 137/84 95 Room Air 05/14/17 20:15 18 05/14/17 20:00 99.4 110 18 129/72 99 Room Air General Appearance: no apparent distress EENT: PERRL/EOMI Neck: supple Rhythm: NSR Cardiovascular: normal rate Respiratory/Chest: chest wall non-tender Abdomen: non tender Extremities: non-tender, normal capillary refill Neurologic: tube station attendant II-XII grossly normal Microbiology Date/Time Source Procedure Growth Status 05/13/17 06:30 Nasal Nares MRSA Culture - Final NO METHICILLIN RESISTANT STAPH AUREUS... Complete SUZE ONOFRE May 15, 2017 18:37
[2017-05-15 20:22] VITALS: BP 126/78
[2017-05-16 00:39] VITALS: BP 135/85
[2017-05-16] MEDS: oxyCODONE 5mg IR tab ORAL PRN ×3 (03:29→16:06)
[2017-05-16 04:00] VITALS: BP 136/90
[2017-05-16] MEDS: D5 1/2NS 1,000 ML IV SCH ×3 (04:29→20:17)
[2017-05-16] MEDS: Dronabinol 2.5mg Cap ORAL SCH ×3 (05:18→22:33)
[2017-05-16] MEDS: PCA shift volume MISC SCH (07:28)
[2017-05-16 08:00] VITALS: BP 124/79
[2017-05-16] MEDS: Docusate 100mg cap ORAL SCH ×2 (08:43→17:49)
[2017-05-16 12:30] VITALS: BP 123/74
--- NOTE | 2017-05-16 15:15 | Progress Note ---
DATE: 05/16/2017 ACUTE PAIN MANAGEMENT PHYSICIAN PROGRESS NOTE MEDICATIONS: Medication administration record reviewed. Medications include Protonix, oxycodone, Zofran, Narcan, FILLER OPERATOR Dilaudid, Marinol, Colace, Benadryl, Cepacol, Soma and Mylanta. OBJECTIVE: VITAL SIGNS: Afebrile, pulse 110, respirations 18, blood pressure 136/90, and oxygen saturation 96% on room air. LABORATORY STUDIES: No interval laboratory studies. I spent over 60 minutes in consultation today. I saw the patient at the bedside with the nurse RN, Kasey. The patient continues to improve steadily. Although, she has not yet passed positive flatus, she has increased her ambulation considerably. A front wheel walker was left in the bedside to encourage ambulation. She is moving to the restroom with good regularity and walking the hallways. Of course, she does feel sore and painful after walking. However, she knows that walking and ambulation is therapeutic and will continue to do so. Sequential compression pneumatic devices remain in place while the patient is in bed. The patient has been much more compliant using her incentive spirometer. She has had good coughing-up of phlegm with chronic smoking. I did psychosocial rehabilitation counselor the patient to stop smoking. The patient shows no signs of oversedation after scheduled around the clock Marinol dose and I would continue this dosing every 8 hours for baseline analgesia. She has continued to use her FILLER OPERATOR Dilaudid, I did suggest the patient that we try to discontinue the FILLER OPERATOR at lunch time today and the patient is agreeable. She does have breakthrough subcutaneous Dilaudid available, which she has not used too frequently, probably about 1 per shift. I have been encouraging frequent dosing of her oral oxycodone, which she has been receiving every 3 to 4 hours. She will continue to stay on this dosing schedule along with mixing in p.r.n. doses of Soma and subcutaneous Dilaudid. The patient does have a good appetite and is waiting to start eating. She knows that since she starts passing flatus, the surgeon will likely advance her diet beyond her current status of NPO except for medications and ice chips, which is necessary after her surgical procedure. The patient already has a good home supply and access to outpatient narcotics, so no prescription will be left at this time. Justin Alvarez M.D. DR: THA JOB#: [id number] CC:
[2017-05-16 16:30] VITALS: BP 150/86
[2017-05-16] MEDS: Naloxegol Oxalate 25mg tab ORAL SCH (17:49)
[2017-05-16 18:34] LABS: ANION GAP 6 mmol/L (5-15); CALCIUM 8.3 MG/DL (8.5-10.1); CARBON DIOXIDE 30 MMOL/L (21-32); CHLORIDE 103 MMOL/L (98-107); CREATININE 0.6 MG/DL (0.55-1.30); GLOMERULAR FILTRATION RATE > 60 mL/min (>60); POTASSIUM 3.7 MMOL/L (3.5-5.1); SODIUM 139 MMOL/L (136-145)
--- NOTE | 2017-05-16 19:06 | Cardiology Progress Note ---
Assessment/Plan Assessment/Plan ordered Movantic Subjective Subjective the patient still did not have BM, atr home she takes Movantix at homeotherwise feels OK Objective Last 24 Hour Vital Signs Date Time Temp Pulse Resp B/P (MAP) Pulse Ox O2 Delivery O2 Flow Rate FiO2 05/16/17 16:30 98.9 114 20 150/86 100 Room Air 05/16/17 12:51 18 05/16/17 12:30 98.2 110 20 123/74 100 Room Air 05/16/17 09:05 98.4 05/16/17 08:00 98.7 108 20 124/79 94 Room Air 05/16/17 08:00 18 05/16/17 06:16 98.4 05/16/17 04:18 18 05/16/17 04:00 99.0 110 20 136/90 96 Room Air 05/16/17 00:39 98.6 118 19 135/85 97 Room Air 05/16/17 00:00 18 05/15/17 20:22 99.8 111 20 126/78 100 Room Air 05/15/17 20:00 18 General Appearance: WD/WN EENT: PERRL/EOMI Neck: non-tender Cardiovascular: normal rate Respiratory/Chest: lungs clear Abdomen: decreased bowel sounds Extremities: normal range of motion Intake and Output 05/16/17 05/17/17 19:00 07:00 Intake Total 1385.0 ml Balance 1385.0 ml Intake IV Total 1385.0 ml # Voids 3 Laboratory Tests Test 05/16/17 15:33 Sodium Level 139 MMOL/L (136-145) Potassium Level 3.7 MMOL/L (3.5-5.1) Chloride Level 103 MMOL/L (98-107) Carbon Dioxide Level 30 MMOL/L (21-32) Anion Gap 6 mmol/L (5-15) Blood Urea Nitrogen 4 mg/dL (7-18) L Creatinine 0.6 MG/DL (0.55-1.30) Estimat Glomerular Filtration Rate > 60 mL/min (>60) Glucose Level 119 MG/DL (74-106) H Calcium Level 8.3 MG/DL (8.5-10.1) SUZE MITCHELL May 16, 2017 19:06
[2017-05-16 20:00] VITALS: BP_SYST 141; BP_SYST 143; BP_DIAS 72; BP_DIAS 86
[2017-05-16] MEDS: HYDROmorphone 1mg/ml Carpuject SUBQ PRN (20:16)
[2017-05-17] MEDS: HYDROmorphone 1mg/ml Carpuject SUBQ PRN ×4 (01:51→23:37)
[2017-05-17 04:00] VITALS: BP 139/89
[2017-05-17] MEDS: D5 1/2NS 1,000 ML IV SCH ×2 (04:00→13:29)
[2017-05-17] MEDS: oxyCODONE 5mg IR tab ORAL PRN ×4 (04:36→16:13)
[2017-05-17] MEDS: Dronabinol 2.5mg Cap ORAL SCH ×3 (05:39→22:19)
[2017-05-17 08:00] VITALS: BP 130/87
[2017-05-17] MEDS: Naloxegol Oxalate 25mg tab ORAL SCH (08:36)
[2017-05-17] MEDS: Docusate 100mg cap ORAL SCH ×2 (08:36→17:14)
--- NOTE | 2017-05-17 10:30 | Progress Note ---
DATE: 05/17/2017 ACUTE PAIN MANAGEMENT PHYSICIAN PROGRESS NOTE MEDICATION: Medication administration record reviewed. Medications include IV fluids, Colace, Protonix, Movantik, Marinol. P.r.n. medications include Cepacol, Benadryl, Dilaudid, Mylanta, Zofran, oxycodone, and Soma. LABORATORY STUDIES: No interval laboratory studies. OBJECTIVE: VITAL SIGNS: Afebrile. Pulse 108, respirations 18, blood pressure 141/86, and oxygen saturation 100% on room air. I spent over 60 minutes in consultation today. I discussed the case with the nurse RN, Kasey, who saw the patient at the bedside. I discontinue the POTATO CHIP SACKING MACHINE OPERATOR yesterday at noon time. The patient did use frequent dosing of her oral oxycodone and did seem to tolerate being off of the POTATO CHIP SACKING MACHINE OPERATOR unit while using the scheduled Marinol, along with p.r.n. Soma and subcutaneous Dilaudid. Unfortunately, during the warehouse supervisor 3rd shift, the warehouse supervisor 3rd shift nursing squad, was not as generous with the p.r.n. pain medications, causing the patient to fall-behind in her pain control. I reiterate to the nursing team that this patient on chronic opioid narcotics at home needs frequent dosing of her p.r.n. subcutaneous Dilaudid and especially her p.r.n. oxycodone to help moderate her pain levels, and to encourage continued aggressive ambulation out of bed. The patient has been able to sleep at-times; however, there has been no evidence for oversedation. I will continue this current analgesic regimen including her scheduled Marinol every 8 hours around the clock. Ship Liner Dr. Kamila Plasencia saw the patient, both yesterday evening and the evening before. Dr. Plasencia started the patient on Movantik for the patient's chronic opioid-induced constipation. The patient told Dr. Plasencia that she took Movantik at home preop. There still has been no evidence for return of bowel function. The patient is not yet passing positive flatus. The patient remains NPO except for medications and ice chips for now. The patient has been more compliant using her incentive spirometer. She has been getting good activity from the spirometer which has been keeping her pulmonary atelectasis in check to avoid postoperative fevers. Justin Alvarez M.D. DR: BRAYDON JOB#: [id number] CC:
[2017-05-17 12:00] VITALS: BP 132/90
--- NOTE | 2017-05-17 12:02 | General Progress Note ---
Progress Note Progress Note AVSS Intermitant Left Hamstring spasm today. Ambulatory without subjective weakness + flatus NC intact Impression: Improved Plan: advance diet change bed positioning with pillow under knees WARD HILLS May 17, 2017 12:02
[2017-05-17 16:00] VITALS: BP 150/93
--- NOTE | 2017-05-17 17:57 | Cardiology Progress Note ---
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 post op ileus had flatus start on clear tonite by dr Mazariegos dvt ppc pain management advance diet once has bm urine for u/s c/s for her urgency Subjective Cardiovascular: Denies: chest pain, lightheadedness Respiratory: Denies: shortness of breath Gastrointestinal/Abdominal: Reports: other - no bm but has flatus Genitourinary: Denies: burning Objective Last 24 Hour Vital Signs Date Time Temp Pulse Resp B/P (MAP) Pulse Ox O2 Delivery O2 Flow Rate FiO2 05/17/17 12:00 97.5 94 19 132/90 97 Room Air 05/17/17 11:26 98.4 05/17/17 08:00 98.4 100 18 130/87 99 Room Air 05/17/17 07:45 98.6 05/17/17 04:00 98.6 108 18 139/89 99 Room Air 05/16/17 20:00 98.2 108 18 141/86 100 Room Air General Appearance: no apparent distress, alert Cardiovascular: normal rate, regular rhythm Respiratory/Chest: lungs clear, normal breath sounds Abdomen: normal bowel sounds, non tender, soft Extremities: no swelling Intake and Output 05/17/17 05/18/17 19:00 07:00 Intake Total 1417.5 ml Balance 1417.5 ml Intake Oral 350 ml IV Total 1067.5 ml # Voids 1 PIERRE VERA May 17, 2017 17:57
[2017-05-17 20:50] VITALS: BP 141/99
[2017-05-18] VITALS: BP 118/79
[2017-05-18] MEDS: oxyCODONE 5mg IR tab ORAL PRN ×6 (00:36→20:45)
[2017-05-18 01:49] LABS: APPEARANCE,URINE CLEAR; KETONES,URINE 1+ (NEGATIVE); LEUKOCYTE ESTERASE ,URINE 2+ (NEGATIVE); NITRITE,URINE NEGATIVE (NEGATIVE); PH,URINE 8 (4.5-8.0); PROTEIN,URINE NEGATIVE (NEGATIVE); UROBILINOGEN,URINE NORMAL MG/DL (0.0-1.0)
[2017-05-18 02:07] LABS: BACTERIA,URINE FEW /HPF; RBC,URINE 0-2 /HPF (0 - 2); SQUAMOUS EPITHELIAL CELL,UR MANY /LPF (NONE/OCC); WBC,URINE 15-20 /HPF (0 - 2)
[2017-05-18 04:00] VITALS: BP 138/91
[2017-05-18] MEDS: Dronabinol 2.5mg Cap ORAL SCH ×3 (05:24→23:17)
--- NOTE | 2017-05-18 06:30 | Progress Note ---
DATE: 05/18/2017 ACUTE PAIN MANAGEMENT PHYSICIAN PROGRESS NOTE MEDICATIONS: Medication administration record reviewed. Medications include Mylanta, Soma, Cepacol, Benadryl, Colace, Marinol, Dilaudid, Zantac, Narcan, Zofran, oxycodone, and Protonix. LABORATORY STUDIES: No interval laboratory studies. OBJECTIVE: VITAL SIGNS: Pain level is 7/10 on the visual analog pain scale, afebrile, pulse 96, respirations 19, blood pressure 141/99, and oxygen saturation 98% on room air. I spent over 60 minutes in consultation today. Dr. Mazariegos evaluated the patient earlier yesterday and was pleased with the patient's progress. The patient started passing positive flatus yesterday and she has been advancing her diet steadily without any nausea symptoms. The patient continued to increase her ambulation. Yesterday, we started her with much more frequent dosing of oral oxycodone to help with baseline analgesia in combination with the Marinol. We were trying to restrict the Soma and the breakthrough Dilaudid injections for severe breakthrough pain. This regimen seems to be quite effective until shift change when the night nurse was less methodical keeping the patient frequently dosed with the p.r.n. oxycodone. I have since explained to the nurse and reiterated with the patient to maintain the dosing of all the oxycodone instant release nearly every three to four hours. The patient has no oversedation whatsoever. The patient believes that the frequent doses of the oxycodone has been extremely helpful and so I will continue that regimen. Now, the patient is having improved bowel function, hopefully the Movantik, which has been used for three days now, will help expedite a bowel movement. The patient has been increasing her ambulation steadily. She has walked with stairs training over the past two days with physical therapy. The patient remains compliant using her incentive spirometer. We will continue to advance her diet, increase her ambulation, and await a bowel movement prior to discharge. Justin Alvarez M.D. DR: Nora JOB#: [id number] CC:
[2017-05-18 08:00] VITALS: BP 140/94
[2017-05-18] MEDS: Naloxegol Oxalate 25mg tab ORAL SCH (08:52)
[2017-05-18] MEDS: Docusate 100mg cap ORAL SCH ×2 (08:52→17:13)
[2017-05-18] MEDS: HYDROmorphone 1mg/ml Carpuject SUBQ PRN ×2 (11:27→17:44)
[2017-05-18 12:00] VITALS: BP 163/95
[2017-05-18 16:00] VITALS: BP 141/92
--- NOTE | 2017-05-18 16:00 | Cardiology Progress Note ---
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 post op ileus had flatus started on clear yest dvt ppx pain management advance diet once has bm urine for u/s c/s for her urgency one dose of Rocephin for her uti while we wait for identification of the bacteria Subjective Cardiovascular: Denies: chest pain, irregular heart rate, lightheadedness, palpitations Respiratory: Denies: shortness of breath Gastrointestinal/Abdominal: Reports: abdominal pain, constipated, Denies: diarrhea, nausea, vomiting Genitourinary: Denies: burning Objective Last 24 Hour Vital Signs Date Time Temp Pulse Resp B/P (MAP) Pulse Ox O2 Delivery O2 Flow Rate FiO2 05/18/17 12:00 97.4 99 20 163/95 97 Room Air 05/18/17 11:57 97.5 05/18/17 08:00 97.5 104 20 140/94 98 Room Air 05/18/17 04:00 98.1 97 18 138/91 100 Room Air 05/18/17 00:00 99.2 80 19 118/79 100 Room Air 05/17/17 20:50 98.4 96 19 141/99 98 Room Air 05/17/17 16:00 98.0 96 19 150/93 96 Room Air General Appearance: alert Neck: supple Cardiovascular: normal rate, regular rhythm Respiratory/Chest: lungs clear Abdomen: normal bowel sounds, non tender, soft Extremities: no swelling Intake and Output 05/18/17 05/19/17 19:00 07:00 Intake Total 250 ml Balance 250 ml Intake Oral 250 ml # Voids 2 Laboratory Tests Test 05/18/17 00:30 Urine Color Pale yellow Urine Appearance Clear Urine pH 8 (4.5-8.0) Urine Specific [place] 1.010 (1.005-1.035) Urine Protein Negative (NEGATIVE) Urine Glucose (UA) Negative (NEGATIVE) Urine Ketones 1+ (NEGATIVE) H Urine Occult Blood Negative (NEGATIVE) Urine Nitrite Negative (NEGATIVE) Urine Bilirubin Negative (NEGATIVE) Urine Urobilinogen Normal MG/DL (0.0-1.0) Urine Leukocyte Esterase 2+ (NEGATIVE) H Urine RBC 0-2 /HPF (0 - 2) Urine WBC 15-20 /HPF (0 - 2) H Urine Squamous Epithelial Cells Many /LPF (NONE/OCC) H Urine Bacteria Few /HPF (NONE) PIERRE VERA May 18, 2017 16:00
[2017-05-18] MEDS ORDERED: cefTRIAXone 1 GM in D5W 55 ML IVPB ONE (17:00)
[2017-05-18 20:00] VITALS: BP 157/94
[2017-05-19 00:56] VITALS: BP 139/86
[2017-05-19] MEDS: HYDROmorphone 1mg/ml Carpuject SUBQ PRN (01:36)
[2017-05-19] MEDS: oxyCODONE 5mg IR tab ORAL PRN ×4 (02:42→14:22)
[2017-05-19 04:49] VITALS: BP 119/66
[2017-05-19] MEDS: Dronabinol 2.5mg Cap ORAL SCH ×2 (05:37→14:22)
[2017-05-19 08:00] VITALS: BP 167/110
[2017-05-19] MEDS: Docusate 100mg cap ORAL SCH (10:17)
[2017-05-19] MEDS: Naloxegol Oxalate 25mg tab ORAL SCH (10:18)
[2017-05-19] MEDS ORDERED: Magnesium Citrate Liq Btl ORAL PRN (10:30)
[2017-05-19 12:00] VITALS: BP 159/98
[2017-05-19 16:00] VITALS: BP 150/95
[2017-05-19] MEDS ORDERED: D5 1/2NS 1000ml IV ONE (16:45)
[2017-05-19] MEDS ORDERED: NS 275ml ONE (16:45)
[2017-05-19] MEDS ORDERED: Tubing IV Secondary IV ONE (16:45)
--- NOTE | 2017-05-19 22:17 | Progress Note ---
DATE: 05/19/2017 ACUTE PAIN MANAGEMENT PHYSICIAN PROGRESS NOTE VITAL SIGNS: Afebrile, pulse 96, respirations 20, blood pressure 159/98, and saturation 98% on room air. LABORATORY STUDIES: Laboratory studies from yesterday. Urinalysis, 05/18/2017, shows 1+ ketones 2+, leukocyte esterase. Chemistry from 05/16/2017 shows sodium 139, potassium 3.7, chloride 103, bicarbonate 30, creatinine 0.6, glucose 119, and calcium 8.3. MEDICATIONS: Medication administration record reviewed. Medications include Colace, Protonix, Movantik, Marinol. Pain medications include Cepacol, Benadryl, Dilaudid, Mylanta, Zofran, Roxicodone, Soma, and magnesium citrate. I spent over 60 minutes in consultation today. I saw the patient at bedside after discussion with the nurse, DORINDA Brand. The patient is very mobile. She is walking around the room without any walker or assistance. Dr. Mazariegos, spine surgery, ordered a dose of magnesium citrate. After the dose was given, the patient finally had a bowel movement. She is tolerating advancing diet now that her gastrointestinal function has returned to normal, I agree with the surgeon for discharge trial home. The patient has good supply of oxycodone and Soma already. The patient will visit her local marijuana dispensary at home to obtain multiple medical marijuana treatment including edibles to help for breakthrough pain. The patient has excellent support with family and friends to assist with activities of daily living. The patient will follow up with her outpatient pain doctor for narcotic adjustments and refills. The patient will follow up with Dr. Mazariegos for her outpatient surgical followup. The patient has normal vital signs. I will defer the patient's medical issues to Dr. Ugalde. I agree with discharge trial home at this time. I did encourage continued incentive spirometer usage to help with pulmonary toilet while she continues to smoke. Justin Alvarez M.D. DR: Jeison JOB#: [id number] CC:
--- NOTE | 2017-05-20 08:32 | Discharge Summary ---
Discharge Summary Hospital Course Date of Admission May 13, 2017 at 05:43 Date of Discharge May 19, 2017 at 16:46 Admitting Diagnosis HPI Tova Taylor is a 41 year old female who was admitted on May 13, 2017 at 05 :43 for Lumbar Instability Hospital Course [id number] Discharge Discharge Disposition Patient was discharged to Home (01) Discharge Diagnoses: Aleksandra Padilla NP May 20, 2017 08:32
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
== END 2017-05-19 16:46 | disposition home or self-care (01) | DRG 460 ==
LOC: SDSOVERFLO 05:43 → 3E 13:16
PROC: 0SG30K0 Fusion of Lumbosacral Joint with Nonautologous Tissue Substitute, Anterior Approach, Anterior Column, Open Approach (ICD-10-PCS; principal; 2017-05-13 07:00)
PROC: 0ST40ZZ Resection of Lumbosacral Disc, Open Approach (ICD-10-PCS; principal; 2017-05-13 07:00)
PROC: 0SG30AJ Fusion of Lumbosacral Joint with Interbody Fusion Device, Posterior Approach, Anterior Column, Open Approach (ICD-10-PCS; principal; 2017-05-13 07:00)
PROC: 4A11X4G Monitoring of Peripheral Nervous Electrical Activity, Intraoperative, External Approach (ICD-10-PCS; principal; 2017-05-13 07:00)
DX: M51.37 Other intervertebral disc degeneration, lumbosacral region (principal); K56.7 Ileus, unspecified; N39.0 Urinary tract infection, site not specified; M53.2X7 Spinal instabilities, lumbosacral region; R03.0 Elevated blood-pressure reading, without diagnosis of hypertension; G89.18 Other acute postprocedural pain; E66.9 Obesity, unspecified; Z68.32 Body mass index [BMI] 32.0-32.9, adult
CPT/HCPCS: 36415; 72020; 76001; 80048; 81001; 81025; 86850; 86900; 86901; 87081; 87086; 87181; 94003; 94150; J2405; J2710

== ENCOUNTER 2018-02-24 05:43 | Inpatient (IN) | payer OTHER ==
[~2018-02-24] VITALS: Ht 160 cm; Wt 78.0 kg
[2018-02-24] VITALS (10 sets, daily range): BP systolic 117–141; BP diastolic 66–88
[~2018-02-24 05:43] MED LIST changes: +SOMA350 MG PO
[2018-02-24] MEDS ORDERED: Zemuron 50mg/5ml Inj IV ONE (06:22)
[2018-02-24] MEDS ORDERED: EPINEPHrine 1mg/1ml Amp ONE (06:29)
[2018-02-24] MEDS ORDERED: Gelfoam Size TOPIC ONE (06:30)
[2018-02-24] MEDS ORDERED: Thrombin 5000 units TOPIC ONE (06:30)
[2018-02-24] MEDS ORDERED: Bupivacaine 0.5% Inj 30 ml vial INJ ONE (06:30)
[2018-02-24] MEDS ORDERED: Lidocaine 1% Plain 30 ml INJ ONE ×2 (06:30→07:00)
[2018-02-24] MEDS ORDERED: Bacitracin 50000 Units Vial ONE (06:31)
[2018-02-24] MEDS ORDERED: LR 1000ml 1,000 ML IVLG SCH (06:41)
--- NOTE | 2018-02-24 06:41 | Anethesia Preoperative Eval ---
Anesthesia Pre-op PMH/ROS General Date of Evaluation: Feb 24, 2018 Time of Evaluation: 07:01 Anesthesiologist: Dharmesh ASA Score: ASA 2 Mallampati Score Class I : Soft palate, uvula, fauces, pillars visible Class II: Soft palate, uvula, fauces visible Class III: Soft palate, base of uvula visible Class IV: Only hard plate visible Mallampati Classification: Class II Surgeon: Delilah Diagnosis: Painful Hardware Surgical Procedure: L5-S1 Hardware Removal Anesthesia History: none Family History: no anesthesia problems Allergies: Uncoded Allergies: SYNTHETIC HORMONES (Adverse Reaction, Unknown, wbc goes down , 04/02/17) Medications: see eMAR Past Medical History Cardiovascular: Reports: HTN Pulmonary: Reports: asthma Other: obesity - BMI 33 PSxH Narrative: Cervical, Lumbar Fusion Anesthesia Pre-op Phys. Exam Physician Exam Last Vital Signs Date Time Temp Pulse Resp B/P (MAP) Pulse Ox O2 Delivery O2 Flow Rate FiO2 02/24/18 06:12 Room Air Constitutional: NAD Neurologic: CN 2-12 intact Cardiovascular: RRR Respiratory: CTA Gastrointestinal: S/NT/ND Airway Exam Mallampati Score: Class II MO: full ROM: limited Teeth: intact Anesthesia Pre-op A/P Labs Urine Test Test 02/24/18 06:05 Urine HCG, Qualitative Negative (NEGATIVE) Risk Assessment & Plan Assessment: ASA 2 Plan: GA, SED, GlideScope Status Change Before Surgery: No Pre-Antibiotics Dru Grams Ancef IV Given Within 1 Hr of Incision: Yes Time Given: 07:31 Todd Barroso MD Feb 24, 2018 06:41
[2018-02-24] MEDS ORDERED: oxyCODONE HCL/Acetaminophen 5/325mg ORAL PRN (06:45)
[2018-02-24] MEDS ORDERED: Norco 5mg/325mg tab ORAL PRN (06:45)
[2018-02-24] MEDS ORDERED: Ketorolac 30mg Inj IV PRN ×2 (06:45)
[2018-02-24] MEDS ORDERED: DiphenhydrAMINE 50mg/ml Inj IVP PRN (06:45)
[2018-02-24] MEDS ORDERED: LORazepam Inj 2mg/ml 1ml IV PRN (06:45)
[2018-02-24] MEDS ORDERED: Acetaminophen (Non formulary) 100 ML IV ONE (06:45)
[2018-02-24] MEDS ORDERED: fentaNYL 100 mcg/2 mL IV PRN (06:45)
[2018-02-24] MEDS ORDERED: Labetalol 5mg/ml 20ml vial IV PRN (06:45)
[2018-02-24] MEDS ORDERED: Hydromorphone 0.5mg/0.5ml inj IVP PRN (06:45)
[2018-02-24] MEDS ORDERED: Metoclopramide 10mg/2ml Inj IVP PRN (06:45)
[2018-02-24] MEDS ORDERED: Midazolam 2mg/2ml Inj IVP PRN (06:45)
[2018-02-24] MEDS ORDERED: Atropine Inj 1mg/10ml Syr IV PRN (06:45)
[2018-02-24] MEDS ORDERED: HYDROcodone/Acetamin 7.5/325 tab ORAL PRN (06:45)
[2018-02-24] MEDS ORDERED: Propofol 1,000mg/ 100ml btl IV ONE (07:00)
[2018-02-24] MEDS ORDERED: Dexamethasone 20mg/5ml IVP ONE (07:00)
[2018-02-24] MEDS ORDERED: oxyCODONE 5mg IR tab ORAL PRN (07:00)
[2018-02-24] MEDS ORDERED: NS Irrig 1000ml ONE (07:00)
[2018-02-24] MEDS ORDERED: Magnesium Citrate Liq Btl ORAL PRN (07:00)
[2018-02-24] MEDS ORDERED: LR 1000ml ONE (07:00)
[2018-02-24] MEDS ORDERED: Sodium Chloride 10ml vial INJ ONE (07:00)
[2018-02-24] MEDS ORDERED: Lidocaine 1% MPF 10mg/ml 5ml ONE (07:00)
[2018-02-24] MEDS ORDERED: ceFAZolin sod 1 GM in NS 55 ML IVPB ONE (07:00)
[2018-02-24] MEDS ORDERED: Sterile Water Irrig 1000ml IRRIG ONE (07:00)
--- NOTE | 2018-02-24 07:08 | Pre-Procedure Note/Attestation ---
Pre-Procedure Note/Attestation Complete Prior to Procedure Planned Procedure: not applicable Procedure Narrative: exploration fusion mass L5-S1 removal pedicle screw instrumentation L5, S1 Indications for Procedure Pre-Operative Diagnosis: back pain instrumentation impingement lumbar paraspinal muscles Attestation I attest that I discussed the nature of the procedure; its benefits; risks and complications; and alternatives (and the risks and benefits of such alternatives ), prior to the procedure, with the patient (or the patient's legal inbound customer service representative). I attest that, if there was a reasonable possibility of needing a blood transfusion, the patient (or the patient's legal inbound customer service representative) was given the [facility] standardized written summary, pursuant to the [place] Blood Safety Act ([place] Health and Safety Code # 1645, as amended). I attest that I re-evaluated the patient just prior to the surgery and that there has been no change in the patient's H&P, except as documented below: WARD HILLS Feb 24, 2018 07:08
[2018-02-24] MEDS ORDERED: Glycopyrrolate 0.2mg/ml 1ml Vial ONE (08:58)
[2018-02-24] MEDS ORDERED: Neostigmine 1mg/ml 10ml Inj ONE (08:58)
[2018-02-24] MEDS: Docusate 100mg/10ml Liq NG SCH ×2 (09:00→17:56)
[2018-02-24] MEDS ORDERED: Naloxone 0.4mg/ml Inj ONE (09:02)
--- NOTE | 2018-02-24 09:05 | Brief Operative Note ---
Immediate Post Operative Note Operative Note Pre-op Diagnosis: back pain instrumentation impingement lumbar paraspinal muscles Procedure: Exploration Lumbar Spine Fusion Mass Removal pedicle screws bilateral L5, S1 Scar Xray Local Anesthetic Post-op Diagnosis: same as pre-op Findings: consistent w/pre-op dx studies Surgeon: Delilah TOMLIN Collection Teller: Virgie PURVIS Anesthesiologist: Dharmesh TOMLIN Anesthesia: general Specimen: yes Complications: none Condition: stable Fluids: anesthesia Estimated Blood Loss: minimal Drains: none Implant(s) used?: No WARD HILLS Feb 24, 2018 09:05
[2018-02-24] MEDS ORDERED: Naloxone 0.4mg/ml Inj IVP PRN (09:15)
--- NOTE | 2018-02-24 09:36 | Immediate Post-Op Evaluation ---
Immediate Post-Op Evalulation Immediate Post-Op Evalulation Procedure: L5-S1 Hardware Removal Date of Evaluation: Feb 24, 2018 Time of Evaluation: 09:44 IV Fluids: 1000 LR Blood Products: 0 Estimated Blood Loss: 20 Urinary Output: 0 Blood Pressure Systolic: 128 Blood Pressure Diastolic: 78 Pulse Rate: 104 Respiratory Rate: 16 O2 Sat by Pulse Oximetry: 100 Temperature (Fahrenheit): 97.3 Pain Score (1-10): 3 Nausea: No Vomiting: No Complications 0 Patient Status: awake, reacts, patent, extubated, none Hydration Status: adequate Dru Grams Ancef IV Given Within 1 Hr of Incision: Yes Time Given: 07:31 Todd Barroso MD Feb 24, 2018 09:36
--- NOTE | 2018-02-24 09:37 | 48 Hour Post Anesthesia Eval ---
Post Anesthesia Evaluation Procedure: L5-S1 Hardware Removal Date of Evaluation: Feb 24, 2018 Time of Evaluation: 12:06 Blood Pressure Systolic: 138 0: 78 Pulse Rate: 82 Respiratory Rate: 18 Temperature (Fahrenheit): 98.3 O2 Sat by Pulse Oximetry: 100 Airway: patent Nausea: No Vomiting: No Pain Intensity: 3 Hydration Status: adequate Cardiopulmonary Status: Stable Mental Status/LOC: patient returned to baseline Follow-up Care/Observations: 0 Post-Anesthesia Complications: 0 Follow-up care needed: ready to discharge Todd Barroso MD Feb 24, 2018 09:37
[2018-02-24] MEDS: Dronabinol 2.5mg Cap ORAL SCH ×2 (11:00→18:27)
[2018-02-24] MEDS: oxyCODONE 5mg IR tab ORAL PRN (12:11)
[2018-02-24] MEDS: D5 1/2NS 1,000 ML IV SCH ×3 (12:11→22:27)
[2018-02-24] MEDS: ceFAZolin sod 1 GM in D5W 55 ML IV SCH ×2 (15:06→23:09)
[2018-02-24] MEDS: HYDROmorphone 1mg/ml Carpuject SUBQ PRN ×2 (16:03→22:20)
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
--- NOTE | 2018-02-24 18:30 | Operative Note - Dictated ---
DATE OF OPERATION: 02/24/2018 SURGEON: Jose Mazariegos, Ph.D., M.D. PROFESSOR OF VOICE: YANIV Mitchell. ANESTHESIOLOGIST: Todd Barroso M.D. ANESTHESIA: General with intubation admitting. ADMTITING/PREOPERATIVE DIAGNOSES: Lumbar spine pain, paraspinal muscle irritation, and pedicle screw instrumentation. POSTOPERATIVE DIAGNOSES: Lumbar spine pain, paraspinal muscle irritation, and pedicle screw instrumentation. OPERATIVE PROCEDURE: 1. Exploration of fusion mass, L5-S1. 2. Operation through scar tissue. 3. Removal of pedicle screw instrumentation. 4. Intraoperative fluoroscopy interpreted by surgeon. 5. Local anesthetic applied by surgeon. ESTIMATED BLOOD LOSS: Minimal. DRAINS: None. COMPLICATIONS: None. POSTOP CONDITION: Good/stable. DESCRIPTION OF PROCEDURE: The patient was brought to the operating room and in the supine position, general anesthesia with intubation was induced. IV antibiotics and intravenous Decadron were administered 30 minutes prior to incision time. The patient was carefully turned and positioned in the prone position. AP radiographs without penetration of the skin with metallic markers overlying the back were utilized for determination of pedicle screw location. Marked with sterile pen. Markers removed. Back sterilely prepped and draped free in usual sterile fashion. Utilizing a portion of the prior midline incision, sharp dissection was carried through scar tissue. Electrocautery dissection was carried through subcutaneous tissue scar tissue to the lumbodorsal fascia was incised midline, followed with operation through the scar tissue right and left to midline to the pedicle screw instrumentation, L5-S1 bilaterally. Sequentially bilaterally, interconnecting rods were removed after removal of the locking screws. The locking screws were tight. No evidence of loosening of the hazel or fracture. Stressing of the interval revealed no motion consistent with intact fusion. Pedicle screw instrumentation, the pedicle screws were removed without sequelae. All screws were tight in place. Wound was irrigated with antibiotic-containing saline. Pedicle screw holes were superficially filled with FloSeal. Sequential reapproximation in multiple layers of the lumbodorsal fascia and subcutaneous scar tissue in 3 separate layers, followed with running subcuticular sutures of dermis and epidermis with absorbable suture. Local anesthetic 1% lidocaine with epinephrine was introduced in bilateral and lateral aspects of the incision into the dermal/subcutaneous interval. Surgical strips applied transversely to the incision followed with sterile bandage maintained in place with tape. After closing, radiograph was obtained and record demonstrated all instrumentation removed. The patient was carefully turned from the prone to the supine position on the transport bed where she was awakened and extubated in the operating room and transported to postop recovery in good stable condition. Jose Mazariegos M.D. DR: MILDRED JOB#: [id number] CC:
[2018-02-25] VITALS: BP 123/87
[2018-02-25] MEDS: oxyCODONE 5mg IR tab ORAL PRN ×2 (01:49→07:35)
[2018-02-25 04:00] VITALS: BP 107/75
[2018-02-25] MEDS: Dronabinol 2.5mg Cap ORAL SCH (04:00)
[2018-02-25] MEDS: ceFAZolin sod 1 GM in D5W 55 ML IV SCH (07:01)
[2018-02-25 08:00] VITALS: BP 113/77
[2018-02-25] MEDS: Docusate 100mg/10ml Liq NG SCH (08:56)
[2018-02-25] MEDS: HYDROmorphone 1mg/ml Carpuject SUBQ PRN (10:06)
[2018-02-25] MEDS ORDERED: D5 1/2NS 1000ml IV ONE (12:02)
--- NOTE | 2018-02-25 12:54 | Diagnostic Imaging Report ---
Indication: Back pain Comparison: None Findings: 2 fluoroscopic views of the lumbar spine were obtained. Images showing L5-S1 posterior fusion with removal of posterior hardware. IMPRESSION: Intraoperative imaging
--- NOTE | 2018-02-25 17:00 | Progress Note ---
DATE: 02/25/2018 ACUTE PAIN MANAGEMENT PHYSICIAN PROGRESS NOTE MEDICATIONS: Medication administration record reviewed. Medications include IV fluids, Colace, Protonix Marinol. P.r.n. medications include Benadryl, Mylanta, Cepacol, Dilaudid, Zofran, magnesium citrate, Soma, , Narcan. VITAL SIGNS: Within normal limits. Afebrile, pulse 83, respirations 18, blood pressure 113/77, oxygen saturation 100% on room air. LABORATORY STUDIES: No interval laboratory studies. I spent over 60 minutes in consultation today. I saw the patient at bedside with her father and the nurse RN, Leigh. I discussed the case with the surgeon, Dr. Mazariegos, who recommended the patient stay overnight after she was having significant pain complaints after her surgery yesterday. The patient has been using oxycodone considerably after multiple surgeries over the past year and has developed some tachyphylaxis to opioid-agonist receptor agents. I did select dose of oxycodone 20 mg instant release which was well tolerated and did help with the pain somewhat. I did encourage use of the Marinol along with p.r.n. doses of Dilaudid and Soma. This combination has seen to moderate her pain complaints to the point that she is able to move in and out of bed and should be able to discharge home in her father's care later this morning, on postoperative day #1. The patient is swallowing, breathing, and phonating within normal limits. The patient is able to ambulate and void urine. The patient is tolerating advancing diet and denies any shortness of breath or chest pain. Dr. Mazariegos already provided the patient prescriptions for oxycodone for home usage and the patient will visit her local dispensary to obtain her edible marijuana pills which have been so effective for analgesia for the past several months. With normal vital signs and in improved clinical presentation, I agree with the discharge trial home later today. Justin Alvarez M.D. DR: Charline JOB#: [id number] CC:
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
== END 2018-02-25 12:03 | disposition home or self-care (01) | DRG 517 ==
LOC: SUR 05:43 → 3E 10:12
PROC: 0SP304Z Removal of Internal Fixation Device from Lumbosacral Joint, Open Approach (ICD-10-PCS; principal; 2018-02-24 07:00)
DX: T84.84XA Pain due to internal orthopedic prosthetic devices, implants and grafts, initial encounter (principal); M54.5 Low back pain; Y83.8 Other surgical procedures as the cause of abnormal reaction of the patient, or of later complication, without mention of misadventure at the time of the procedure; D64.9 Anemia, unspecified; G89.18 Other acute postprocedural pain; V89.2XXS Person injured in unspecified motor-vehicle accident, traffic, sequela; Z98.1 Arthrodesis status
CPT/HCPCS: 36415; 72020; 76001; 81025; 86850; 86900; 86901; 87081; J2405; J2710